=== PATIENT | male | born 1975 | race Caucasian/White ===

== ENCOUNTER 2021-10-14 19:40 | Observation (INO) ==
[2021-10-14 20:10] LABS: Basophils # 0.1 K/mcL (0.0-0.2); Basophils % 0.6 %; Eosinophils # 0.1 K/mcL (0.0-0.6); Eosinophils % 1.2 %; Hematocrit 47.1 % (37.5-50.1); Immature Granulocytes % 0.3 % (0-4); Lymphocytes # 2.3 K/mcL (0.6-4.6); Lymphocytes % 22.8 %; Mean Corpuscular Hemoglobin 32.5 pg (28.0-33.3); Mean Corpuscular Volume 95.7 fL (83.0-100.0); Mean Platelet Volume 9.7 fL (9.4-12.4); Monocytes # 0.8 K/mcL (0.0-1.3); Monocytes % 7.9 %; Neutrophils # 6.8 K/mcL (1.6-8.9); Platelet Count 245 K/mcL (140-400); Red Blood Count 4.92 M/mcL (4.19-5.50); Red Cell Distribution Width 14.4 % (11.5-14.5); Segmented Neutrophils % 67.2 %; White Blood Count 10.1 K/mcL (4.3-11.1)
[2021-10-14 20:33] LABS: BUN/Creatinine Ratio 14 (6-26); Blood Urea Nitrogen 12 mg/dL (6-20); Calcium 9.5 mg/dL (8.6-10.3); Carbon Dioxide 24 mEq/L (23-29); Chloride 104 mEq/L (98-107); Glucose 126 mg/dL (70-105); Osmolality,Calculated 283 (280-300); Potassium 3.7 mEq/L (3.5-5.1); Sodium 136 mEq/L (136-145); eGFR For African Americans > 60 (> 60); eGFR For Non-African Americans > 60 (> 60)
[2021-10-14 20:34] LABS: Troponin I < 0.03 ng/mL (< 0.04)
[2021-10-14] MEDS ORDERED: Nitroglycerin 1 INCH/GM PACKET TP ONE (21:03)
[2021-10-14] MEDS ORDERED: Melatonin 3 MG TABLET PO PRN (22:05)
[2021-10-14] MEDS ORDERED: Naloxone 0.4 MG/ML INJ IVP PRN (22:05)
[2021-10-14] MEDS ORDERED: *HR* OxyCODONE Immed Rel 5 MG TABLET PO PRN (22:05)
[2021-10-14] MEDS ORDERED: Acetaminophen 325 MG TABLET PO PRN (22:05)
[2021-10-14] MEDS ORDERED: Ondansetron ODT 4 MG TAB.RAPDIS SL PRN (22:05)
[2021-10-14] MEDS ORDERED: Perflutren Lipid Microsphere 1.3 ML in 0.9 % Sodium Chloride 8.7 ML IVP PRN (22:08)
[2021-10-14] MEDS ORDERED: *HR* Labetalol 20 MG/4 ML SYRINGE IVP ONE (22:30)
[2021-10-14] MEDS: Nitroglycerin 0.4 MG TAB.SUBL SL SCH ×2 (22:58→23:02)
[2021-10-14] MEDS: *HR* HYDROcodone/Acet 5/325 mg TABLET PO PRN (23:13)
[2021-10-15] MEDS: Nitroglycerin 0.4 MG TAB.SUBL SL SCH (00:48)
[2021-10-15 03:08] LABS: Hematocrit 42.9 % (37.5-50.1); Mean Corpuscular HGB Conc 33.6 g/dL (31.6-35.5); Mean Corpuscular Hemoglobin 31.6 pg (28.0-33.3); Mean Corpuscular Volume 94.1 fL (83.0-100.0); Mean Platelet Volume 9.9 fL (9.4-12.4); Platelet Count 229 K/mcL (140-400); Red Blood Count 4.56 M/mcL (4.19-5.50); Red Cell Distribution Width 14.3 % (11.5-14.5); White Blood Count 7.9 K/mcL (4.3-11.1)
[2021-10-15 03:08] LABS: Bilirubin,Urine Negative (Negative); Blood,Urine Negative (Negative); Clarity,Urine Clear (Clear); Color,Urine Yellow (Yellow); Glucose,Urine (UA) Normal (Normal); Ketones,Urine Negative (Negative); Leukocyte Esterase,Urine Negative (Negative); Nitrite,Urine Negative (Negative); PH,Urine 6.5 pH Units (5.0-8.0); Protein,Urine Trace mg/dL (Neg-Trace); Urobilinogen,Urine Normal (Normal)
[2021-10-15 03:18] LABS: Amphetamine Screen,Urine Negative ng/mL (Cutoff=1000); Barbiturate Screen,Urine Negative ng/mL (Cutoff=200); Benzodiazepines Screen,Urine Negative ng/mL (Cutoff=200); Cannabinoid Screen,Urine Positive ng/mL (Cutoff = 50); Cocaine Screen,Urine Negative ng/mL (Cutoff= 300); Opiate Screen,Urine Negative ng/mL (Cutoff=300); Phencyclidine Screen,Urine Negative ng/mL (Cutoff=25)
[2021-10-15 03:18] LABS: Hemoglobin 14.4 g/dL (12.9-16.9)
[2021-10-15 03:29] LABS: BUN/Creatinine Ratio 14 (6-26); Blood Urea Nitrogen 12 mg/dL (6-20); Carbon Dioxide 24 mEq/L (23-29); Chloride 105 mEq/L (98-107); Chol/HDL Ratio 2.2 (0-4.9); Cholesterol 129 mg/dL (< 200); Glucose 115 mg/dL (70-105); HDL Cholesterol 58 mg/dL (40-59); LDL Cholesterol,Calculated 52 mg/dL (< 100); Magnesium 1.8 mg/dL (1.6-2.6); Osmolality,Calculated 283 (280-300); Phosphorous 4.1 mg/dL (2.7-4.5); Potassium 3.5 mEq/L (3.5-5.1); Sodium 136 mEq/L (136-145); Triglycerides 96 mg/dL (< 150); eGFR For African Americans > 60 (> 60); eGFR For Non-African Americans > 60 (> 60)
[2021-10-15 03:41] LABS: Thyroid Stimulating Hormone 1.036 mcIU/mL (0.340-5.600)
[2021-10-15 04:04] LABS: Estimated Average Glucose 114 mg/dl; Hemoglobin A1C 5.6 %
[2021-10-15] MEDS: *HR* HYDROcodone/Acet 5/325 mg TABLET PO PRN (05:48)
[2021-10-15] MEDS ORDERED: Regadenoson 0.4 MG/5 ML SYRINGE IVP ONE (06:23)
[2021-10-15] MEDS ORDERED: Nitroglycerin 0.4 MG TAB.SUBL SL PRN (07:21)
[2021-10-15] MEDS ORDERED: lisinopriL 20 MG TABLET PO SCH (10:30)
[2021-10-15] MEDS ORDERED: Perflutren Lipid Microsphere 1.3 ML in 0.9 % Sodium Chloride 8.7 ML IVP PRN (13:21)
[2021-10-15] MEDS ORDERED: amLODIPine 5 MG TABLET PO SCH ×2 (13:30→15:00)
[2021-10-15] MEDS ORDERED: Iopamidol - 370 500 ML MLS IVP ONE (13:46)
[2021-10-15 16:26] VITALS: BP 180/120; PULSE 67; TEMP 97.3; O2SAT 96
== END 2021-10-15 18:29 | disposition left against medical advice (07) ==
LOC: EMEROOARM 19:40 → 2NENU 19:40 → SUATTDRO 22:29 → 2NENU 10-15 00:10
PROVIDERS: ADMIT Family Medicine; ATTEND Nurse Practitioner